=== PATIENT | male | born 1955 | race Caucasian/White ===

== ENCOUNTER 2021-07-06 17:53 | Inpatient (IN) | payer MEDICARE, OTHER ==
[~2021-07-06] VITALS: Ht 177.8 cm; Wt 73.1 kg
[2021-07-06 18:56] LABS: HEMOGLOBIN 13.2 gm/dl (14.0-17.5); RED BLOOD COUNT 4.14 M/UL (4.20-5.50)
[2021-07-06 19:29] LABS: BUN/CREATININE RATIO 28 (0-10)
[2021-07-06] MEDS ORDERED: ATORVASTATIN CA40 MG PO (22:41)
[2021-07-06] MEDS ORDERED: LOPRESSOR 50 MG50 MG PO (22:42)
[2021-07-06] MEDS ORDERED: LISINOPRIL10 MG PO (22:42)
[2021-07-06] MEDS ORDERED: LANTUS SOL100 UNIT/1 SQ (22:43)
[2021-07-06 23:19] LABS: BUN/CREATININE RATIO 29 (0-10)
[2021-07-07 03:27] LABS: BUN/CREATININE RATIO 30 (0-10)
[2021-07-07 07:32] LABS: HEMOGLOBIN 12.9 gm/dl (14.0-17.5); RED BLOOD COUNT 4.06 M/UL (4.20-5.50); WHITE BLOOD COUNT 17.5 K/UL (4.5-11.0)
[2021-07-07 07:58] LABS: BUN/CREATININE RATIO 30 (0-10)
[2021-07-07] MEDS ORDERED: INSULIN AS100 UNIT/3 SQ (22:44)
[2021-07-08 06:42] LABS: HEMOGLOBIN 13.5 gm/dl (14.0-17.5); RED BLOOD COUNT 4.3 M/UL (4.20-5.50)
[2021-07-08 06:45] LABS: WHITE BLOOD COUNT 11.9 K/UL (4.5-11.0)
[2021-07-08 07:17] LABS: BUN/CREATININE RATIO 25 (0-10)
[2021-07-08 09:22] LABS: ACINETOBACTER BAUMANNII Not Detected (Negative); CANDIDA ALBICANS Not Detected (Negative); CANDIDA KRUSEI Not Detected (Negative); CANDIDA TROPICALIS Not Detected (Negative); ENTEROCOCCUS Not Detected (Negative); ESCHERICHIA COLI Not Detected (Negative); HAEMOPHILUS INFLUENZAE Not Detected (Negative); KLEBSIELLA OXYTOCA Not Detected (Negative); KLEBSIELLA PNEUMONIAE Not Detected (Negative); KPC-CARBAPENEM-RESISTANCE GENE Not Detected (Negative); PROTEUS Not Detected (Negative); PSEUDOMONAS AERUGINOSA Not Detected (Negative); SERRATIA MARCESANS Not Detected (Negative); STAPHYLOCOCCUS AUREUS Not Detected (Negative); STREP AGALACTIAE (GROUP B) Not Detected (Negative); STREP PYOGENES (GROUP A) Not Detected (Negative); STREPTOCOCCUS Not Detected (Negative); mecA (METHICILLIN RESIST GENE Not Detected (Negative); vanA/B (VANCOMYCIN RESIST GENE Not Detected (Negative)
[2021-07-08 10:38] LABS: STAPHYLOCOCCUS DETECTED (Negative)
--- NOTE | 2021-07-08 10:45 | NUR ---
Notified Dr. Gutierrez of positive blood cultures orders rec. to repeat blood cultures x2.
[2021-07-09 06:53] LABS: HEMOGLOBIN 12.9 gm/dl (14.0-17.5); RED BLOOD COUNT 4.21 M/UL (4.20-5.50)
[2021-07-09 07:01] LABS: WHITE BLOOD COUNT 5.2 K/UL (4.5-11.0)
[2021-07-09 07:14] LABS: BUN/CREATININE RATIO 18 (0-10)
[2021-07-10 06:23] LABS: HEMOGLOBIN 13.6 gm/dl (14.0-17.5); RED BLOOD COUNT 4.34 M/UL (4.20-5.50)
[2021-07-10 06:56] LABS: BUN/CREATININE RATIO 17 (0-10)
[2021-07-10] MEDS ORDERED: LISINOPRIL10 MG PO (09:09)
[2021-07-10] MEDS ORDERED: PROTONIX40 MG PO (09:09)
--- NOTE | 2021-07-10 17:19 | NUR ---
1715: RN HAS WORKED SINCE DISCHARGE ORDER NOTED TO ASSIST THE PATIENT IN LOCATING HIS VEHICLE AND CAT. RN SPOKE WITH THE ASHLEY MEYER'S OFFICE THAT ASSISTED IN LOCATING THE URGENT [facility]ARE [facility] WHERE HE WAS TREATED PRIOR TO BEING SENT TO [facility]. RN ALSO CALLED PATIENTS SALVADOR OSORIO WHO IS TRAVELLING NORTH FROM [place] TO [place], SHE WILL ARRIVE AROUND 8 PM TONIGHT TO MANAGER FRONT THE PATIENT AND TRANSPORT HIM TO HIS VEHICLE FOR THE DRIVE HOME. THE PATIENT WILL BE FOLLOING HIS SISTER TO [place] [place] [place] IS WHERE THE VEHICLE IS [phone].
== END 2021-07-10 20:48 | disposition home or self-care (01) | DRG 638 ==
LOC: ER1 17:53 → CCU 20:55 → CDU 20:55 → CCU 23:34 → MED SURG 4 07-07 15:16
PROVIDERS: Emergency Medicine; Internal Medicine; Physician Assistant; ADMIT Internal Medicine
DX: E10.10 Type 1 diabetes mellitus with ketoacidosis without coma (principal); R65.10 Systemic inflammatory response syndrome (SIRS) of non-infectious origin without acute organ dysfunction; Z20.822 Contact with and (suspected) exposure to COVID-19; E87.6 Hypokalemia; E78.5 Hyperlipidemia, unspecified; F17.210 Nicotine dependence, cigarettes, uncomplicated; I10 Essential (primary) hypertension; K20.90 Esophagitis, unspecified without bleeding; D63.8 Anemia in other chronic diseases classified elsewhere; Z79.4 Long term (current) use of insulin
CPT/HCPCS: 36415; 36600; 71045; 80048; 80053; 80202; 82009; 82550; 82553; 82607; 82652; 82728; 82746; 82803; 82962; 83036; 83540; 83550; 83605; 83690; 83735; 83874; 83880; 84132; 84439; 84443; 84484; 85025; 85045; 85652; 86140; 87040; 87077; 87086; 87150; 87186; 93005; 96374; 96375; 99285; C9113; J1335; J1650; J2405; J2550; J3370; J3475; J3480; J7050; J7070; U0002